=== PATIENT | male | born 1995 | race Caucasian/White ===

== ENCOUNTER 2021-04-09 17:40 | Emergency (ER) | payer BC, MEDICAID ==
[~2021-04-09] VITALS: Ht 175.3 cm; Wt 103.4 kg
[2021-04-09] MEDS ORDERED: LEVO500T89 PO (19:34)
[2021-04-09 19:52] VITALS: BP 120/74
== END 2021-04-09 20:00 | disposition home or self-care (01) ==
LOC: ER 17:41
DX: N45.1 Epididymitis (principal); N50.811 Right testicular pain; R50.9 Fever, unspecified; R31.9 Hematuria, unspecified; F12.90 Cannabis use, unspecified, uncomplicated; Z60.2 Problems related to living alone; Z79.2 Long term (current) use of antibiotics
CPT/HCPCS: 76870; 93976; 99284

== ENCOUNTER 2021-04-10 12:35 | Emergency (ER) | payer BC ==
[~2021-04-10] VITALS: Ht 175.3 cm; Wt 110.0 kg
[~2021-04-10 12:35] MED LIST: LEVO500T89 PO
[2021-04-10 13:20] VITALS: BP 142/95
== END 2021-04-10 14:00 | disposition home or self-care (01) ==
LOC: ER 12:36
DX: Z00.00 Encounter for general adult medical examination without abnormal findings (principal)
CPT/HCPCS: 99281